=== PATIENT | female | born 1980 | race Caucasian/White ===

== ENCOUNTER 2018-09-21 01:09 | Observation (INO) | payer MEDICAID ==
[~2018-09-21] VITALS: Ht 167.6 cm; Wt 79.4 kg
[2018-09-21 01:23] VITALS: BP 123/83
--- NOTE | 2018-09-21 01:30 | NUR ---
38 YO F BIB SELF PRESENTS TO ED C/O SOB/DYSPNEA X 2 DAYS. SHE ALSO C/O 7/10 CHEST DISCOMFORT DURING DURING DEEP BREATHING. PT IS A POOR HISTORIAN. SHE STATES SHE THINKS SHE HAS ASTHMA BUT HAS NEVER BEEN DIAGNOSED. SHE ALSO REPORTS THAT SHE WAS ADMITTED TO [facility] SOMETIME WITHIN THE PAST MONTH FOR LOW OXYGEN BUT LEFT AMA. PT STATES SHE TAKES AN ALBUTEROL INH AT HOME NEEDED BUT IT HASN'T BEEN WORKING. PT ALSO HAS RX FOR PREDNISONE BUT DOESN'T TAKE IT DUE TO SIDE EFFECTS. --INCREASED WOB NOTED. SP02 84% ON RA. PT PLACED ON NON-REBREATHER MASK AT 10 LPM. SPO2 INCREASED TO 95%. RT CALLED TO BEDSIDE. LUNG SOUNDS DIMINISHED/SHALLOW. MILD WHEEZING HEARD ON INSPIRATION/EXPIRATION. -- PT APPEARS MILDLY ANXIOUS/UNCOMFORTABLE. IS COOPERATIVE, ANSWERS QUESTIONS, BEHAVIOR APPROPRIATE. -- SKIN PINK, WARM DRY. PMH-- COLITIS, HYPOGLYCEMIA RX-- ALBUTEROL INH
--- NOTE | 2018-09-21 01:33 | NUR ---
DR. SORTO BEDSIDE EVALUATING PT
[2018-09-21] MEDS ORDERED: ALBUTEROL SULFATE/IPRATROPIU 3 ML SOL IH ONE ×3 (01:35→05:20)
--- NOTE | 2018-09-21 01:45 | NUR ---
RT AT BEDSIDE. BREATHING TX IN PROGRESS.
[2018-09-21 01:50] LABS: BASOPHILS # (AUTO) 0.1 K/uL (0.00-0.22); BASOPHILS % (AUTO) 0.8 % (0.0-2.0); EOSINOPHILS # (AUTO) 0.6 K/uL (0-0.4); EOSINOPHILS % (AUTO) 6.7 % (0.0-4.0); HEMATOCRIT 43.3 % (36-48); HEMOGLOBIN 14.5 g/dL (12.0-16.0); LYMPHOCYTES # (AUTO) 2.3 K/uL (2.5-16.5); LYMPHOCYTES % (AUTO) 24.6 % (20.5-51.1); MEAN CORPUSCULAR HEMOGLOBIN 31 pg (27-31); MEAN CORPUSCULAR HGB CONC 34 g/dL (33-37); MEAN CORPUSCULAR VOLUME 91.4 fL (80-94); MONOCYTES % (AUTO) 10.5 % (1.7-9.3); NEUTROPHILS # (AUTO) 5.3 K/uL (1.8-7.7); NEUTROPHILS % (AUTO) 57.4 % (42.2-75.2); PLATELET COUNT (AUTO) 444 K/uL (140-450); RED BLOOD CELL COUNT(AUTO) 4.74 MIL/uL (4.20-5.40); RED CELL DISTRIBUTION WIDTH 14.4 % (11.6-13.7); WHITE BLOOD COUNT (AUTO) 9.2 K/uL (4.8-10.8)
[2018-09-21 01:58] LABS: ANION GAP 11.4 (8-16); CREATININE 0.8 mg/dL (0.6-1.3); POTASSIUM 3.4 mmol/L (3.5-5.1)
[2018-09-21 02:04] LABS: ALBUMIN 3.5 g/dL (3.4-5.0); TOTAL BILIRUBIN 0.3 mg/dL (0.0-1.0)
--- NOTE | 2018-09-21 02:16 | NUR ---
EKG PERFORMED BY RN AT BEDSIDE.
[2018-09-21] MEDS ORDERED: DEXAMETHASONE 10 MG/ML VIAL IVP ONE (03:05)
--- NOTE | 2018-09-21 03:50 | NUR ---
PT TAKEN OFF OXYGEN TO EVALUATE SP02 AT RA. WILL CONTINUE TO MONITOR.
--- NOTE | 2018-09-21 04:00 | NUR ---
PT SP02: 90% ON RA. DR. SORTO NOTIFIED. PT WILL BE ADMITTED. PT PLACED BACK ON 4 LPM FIO2 VIA NC.
[2018-09-21] MEDS ORDERED: ALBU2.5V IH (04:30)
--- NOTE | 2018-09-21 04:45 | NUR ---
SP02 DROPED TO 90% ON 4 LPM VIA NC. PT SWITCHED TO NON REBREATHER ON 10 LPM.
--- NOTE | 2018-09-21 05:45 | NUR ---
PT IS REQUESTING FOOD. ARIS PROVIDED. EATING AT THIS TIME.
--- NOTE | 2018-09-21 06:14 | NUR ---
Patient will be admitted to care of DR. LACY. Admited to TELE. Will go to room 111. Belongings list completed. Report to MANUEL PANG.
[2018-09-21] MEDS ORDERED: NACL 0.45% 1,000 ML IV SCH (06:20)
--- NOTE | 2018-09-21 07:26 | NUR ---
RECEIVED PT FROM ER .PT IS AWAKE,ALERT AND ORIENTED.RESP.UNLABORED W/O2.SL PATENT.PLACED ON BED .ORIENTED TO ROOM. CALL SYSTEM EXPLAINED AND IN REACH.MRSA SWAB OBTAINED.HAS NO C/O PAIN AND/OR DISCOMFORT.ENDORSED REPORT TO [facility] JACKSON AM SHIFT.
--- NOTE | 2018-09-21 07:27 | NUR ---
RECEIVED ENDORSEMENT FROM STOPPER GRINDER CHARGE NURSE. PATIENT IS AAOX4, SLEEPING BUT EASILY AROUSABLE. RESPIRATIONS ARE EVEN AND UNLABORED ON 10L NONREBREATHER. LEFT FA IV 22 G INTACT AND SL. PLAN OF CARE WAS REVIEWED WITH PATIENT. PATIENT VERBALIZED UNDERSTANDING. SAFETY MEASURES IN PLACE, CALL LIGHT WITHIN REACH. Addendum: 09/21/18 at 0821 by Nalini Wilkinson RN DENIES PAIN AT THIS TIME.
[2018-09-21 08:00] VITALS: BP 112/71
--- NOTE | 2018-09-21 08:17 | NUR ---
PATIENT HAS BEEN SCREENED AND CATEGORIZED LOW NUTRITION RISK. PATIENT WILL BE SEEN WITHIN 7 DAYS OF ADMISSION. 09/27/[address]
[2018-09-21] MEDS: ALBUTEROL 0.083% 2.5 MG/3 ML NEBU INH PRN ×3 (08:27→20:15)
[2018-09-21] MEDS: AZITHROMYCIN 500 MG in DEXTROSE 5% 250 ML IV SCH (08:50)
[2018-09-21] MEDS: ENOXAPARIN 40 MG/0.4 ML SYR SUBQ SCH (08:51)
--- NOTE | 2018-09-21 09:05 | NUR ---
ADMINISTERED SCHEDULED MEDICATIONS. PATIENT IS SLEEPING, EASILY AROUSABLE. DENIES ANY PAIN OR SOB AT THIS TIME. WILL CONTINUE TO MONITOR.
[2018-09-21 12:00] VITALS: BP 98/72
--- NOTE | 2018-09-21 12:15 | NUR ---
ADMINISTERED SCHEDULED MEDICATIONS. PATIENT IS SLEEPING EASILY AROUSABLE. DENIES ANY PAIN AT THIS TIME. WILL CONTINUE TO MONITOR.
[2018-09-21] MEDS: methylPREDNISolone SS 40 MG/ML VIAL IVP SCH ×3 (12:26→23:50)
[2018-09-21] MEDS ORDERED: ACETAMINOPHEN 325 MG TAB PO PRN (12:35)
--- NOTE | 2018-09-21 13:27 | NUR ---
PATIENT IS SLEEPING, EASILY AROUSABLE. NO OTHER NEEDS AT THIS TIME.
--- NOTE | 2018-09-21 14:17 | NUR ---
PATIENT IS RESTING IN BED, DENIES ANY PAIN. NO OTHER NEEDS AT THIS TIME.
[2018-09-21 16:00] VITALS: BP 129/83
--- NOTE | 2018-09-21 16:15 | NUR ---
PATIENT IS RESTING IN BED. FAMILY IS AT BEDSIDE. DENIES ANY PAIN AT THIS TIME. WILL CONTINUE TO MONITOR.
--- NOTE | 2018-09-21 19:22 | NUR ---
ENDORSED TO WEIGHTER FOR CONTINUITY OF CARE. PATIENT IS STABLE.
--- NOTE | 2018-09-21 19:25 | NUR ---
RECEIVED FROM AM RN IN BED AWAKE AND ALERT. ABLE TO CARRY A CONVERSATION WITH ME WELL. SPEAKS GOOD CROATIAN. NO PAIN COMPLAINT. REMINDED TO USE CALL LIGHT FOR IF IN PAIN AND IF SHE NEEDS HELP. TELEMETRY MONITORING. CARE PLANS FOR THE NIGHT DISCUSSED WITH HER. A/O X 4. ROM X 4 . ORIENTED X 4. WITH NS AT 50 ML/H INFUSING. NO INFILTRATION TO IVF SITE.
[2018-09-21 19:44] VITALS: BP 107/75
[2018-09-21 23:32] VITALS: BP 116/76
--- NOTE | 2018-09-21 23:34 | NUR ---
PT. SLEEPING EARLIER BUT WOKE UP RT HUNGRY. ASKING FOR SNACK. TUNA SANDWICH PROVIDED WITH APPLE JUICE. NO WHEEZING NOTED AT THIS TIME. ABLE TO VERBALIZE NEEDS WELL. A/O X 4. ROM X 4. CLEAR SPEECH. TELEMETRY MONITORING. NSR ON MONITOR.
--- NOTE | 2018-09-22 01:53 | NUR ---
PT. SLEEPING AT THIS TIME. NO RESTLESSNESS NOTED. CALL LIGHT WITH IN REACH. NO SOB.
[2018-09-22] MEDS: ALBUTEROL 0.083% 2.5 MG/3 ML NEBU INH PRN ×3 (03:37→15:25)
[2018-09-22 04:05] VITALS: BP 124/81
--- NOTE | 2018-09-22 04:23 | NUR ---
PT. AWAKE AT THIS TIME RT REQUESTED FOR BREATHING TREATMENT. RESPIRATORY THERAPIST IN HERE AND 02 SAT PER RT JUST FINE. PT. ABLE TO VERBALIZE NEEDS WELL. STATED THAT IT COULD BE HER ALLERGY ACTING UP BECAUSE SHE HAS ITCHY EYES AT PRESENT. REQUESTED FOR WET COLD FACE TOWEL. PROVIDED WITH ONE. "IT FEELS BETTER" NO FURTHER COMPLAINTS DONE.
[2018-09-22 08:00] VITALS: BP 105/54
[2018-09-22 08:08] LABS: HEMATOCRIT 40.5 % (36-48); HEMOGLOBIN 13.6 g/dL (12.0-16.0); MEAN CORPUSCULAR HEMOGLOBIN 31 pg (27-31); MEAN CORPUSCULAR HGB CONC 34 g/dL (33-37); RED CELL DISTRIBUTION WIDTH 13.9 % (11.6-13.7); WHITE BLOOD COUNT (AUTO) 20.3 K/uL (4.8-10.8)
--- NOTE | 2018-09-22 08:29 | NUR ---
[facility] WAS DOWN. PLEASE REFER TO PAPER DOCUMENT.
[2018-09-22 08:37] LABS: ALBUMIN 3.3 g/dL (3.4-5.0); CARBON DIOXIDE 21.8 mmol/L (21-32); CREATININE 0.6 mg/dL (0.6-1.3); POTASSIUM 3.8 mmol/L (3.5-5.1); TOTAL BILIRUBIN 0.2 mg/dL (0.0-1.0)
[2018-09-22 09:05] LABS: PLATELET COUNT (AUTO) 454 K/uL (140-450)
[2018-09-22 09:06] LABS: LYMPHOCYTES % (MANUAL) 4 % (20-46); MONOCYTES % (MANUAL) 3 % (5-12)
[2018-09-22] MEDS: AZITHROMYCIN 500 MG in DEXTROSE 5% 250 ML IV SCH (09:11)
--- NOTE | 2018-09-22 09:17 | NUR ---
ADMINISTERED MEDS PER MD ORDER, PATIENT TOLERATED WELL. PATIENT IS RESTING ON BED AT THIS TIME. PATIENT SAID, " I DIDN'T GET A GOOD SLEEP LAST NIGHT. IT WAS VERY NOISY IN THE [place]." ASSISTED PATIENT TO POSITION COMFORTABLY ON BED. TELE MONITOR IN PLACE. SAFETY MEASURES IN PLACE. INSTRUCTED PATIENT TO USE THE CALL LIGHT FOR ANY ASSISTANCE AND PATIENT WAS AWARE.
[2018-09-22] MEDS: ENOXAPARIN 40 MG/0.4 ML SYR SUBQ SCH (09:56)
--- NOTE | 2018-09-22 11:13 | NUR ---
PATIENT IS RESTING ON BED AT THIS TIME. DENIES PAIN AND SOB. RESPIRATION EVEN AND UNLABORED. NO SIGNS OF DISTRESS NOTED. SAFETY MEASURES IN PLACE. TELE MONITOR ATTACHED. BED IN LOW POSITION AND CALL LIGHT WITHIN REACH.
[2018-09-22 12:00] VITALS: BP 122/69
[2018-09-22] MEDS: methylPREDNISolone SS 40 MG/ML VIAL IVP SCH (12:30)
--- NOTE | 2018-09-22 13:45 | NUR ---
PATIENT IS TALKING ON THE PHONE. DENIES PAIN AND SOB. NO SIGNS OF DISTRESS NOTED. SAFETY MEASURES IN PLACE. TELE MONITOR ATTACHED.
--- NOTE | 2018-09-22 14:30 | NUR ---
DR VALENZUELA IS TALKING TO PATIENT AT BEDSIDE. NO SIGNS OF DISTRESS NOTED. SAFETY MEASURES IN PLACE.
[2018-09-22] MEDS ORDERED: ALBU0.0912 IH (14:36)
[2018-09-22] MEDS ORDERED: PRED20TA5 PO (14:36)
[2018-09-22] MEDS ORDERED: BECL10.62 IH (14:36)
--- NOTE | 2018-09-22 14:40 | NUR ---
PER PATIENT, SHE WILL CALL HER FAMILY OR MOTHER TO FIND OUT WHAT TIME THEY WILL BE ABLE TO PICK HER UP FROM THE HOSPITAL. NO SIGNS OF DISTRESS NOTED. SAFETY MEASURES IN PLACE.
--- NOTE | 2018-09-22 15:10 | NUR ---
PATIENT IS TALKING ON THE PHONE. NO SIGNS OF DISTRESS NOTED.
--- NOTE | 2018-09-22 15:25 | NUR ---
PER PATIENT, NO ONE IS ABLE TO PICK HER UP FROM HER FAMILY. OFFERED BUS TICKET BUT PATIENT PREFERRED TO TAKE THE TAXI AND SHE SAID, " I WILL TAKE THE TAXI AND I WILL PAY FOR IT."
[2018-09-22 16:00] VITALS: BP 118/67
--- NOTE | 2018-09-22 16:15 | NUR ---
PATIENT HAS CHANGED INTO HER OWN CLOTHES AND WAITING FOR THE TAXI TO ARRIVE. DENIES PAIN AND SOB. NO SIGNS OF DISTRESS NOTED. SAFETY MEASURES IN PLACE.
--- NOTE | 2018-09-22 16:25 | NUR ---
DISCHARGE INSTRUCTION PROVIDED TO PATIENT AT BEDSIDE. INSTRUCTED PATIENT TO FOLLOW UP WITH MD AFTER D/C FROM HOSPITAL, EDUCATED PATIENT ON DISEASE MANAGEMENT, MEDICATION REGIMEN, MEDICATION SIDE EFFECTS, DIET REGIMEN. PATIENT VERBALIZED UNDERSTANDING. ANSWERED ALL PATIENT'S QUESTIONS. D/C IV AND IV CANNULA INTACT, NO BLEEDING AT IV INSERT SITE, PATIENT TOLERATED WELL. REMOVED ALL ARMS BANDS. PATIENT CHECKED THE CABINETS AND TOOK ALL HER BELONGINGS. ESCORTED PATIENT TO THE LOBBY AND PATIENT IS DISCHARGE AT THIS TIME IN STABLE CONDITION.
== END 2018-09-22 16:25 | disposition home or self-care (01) ==
LOC: MED 01:09 → MTU 05:38 → INTOOBSV 05:38
PROVIDERS: ADMIT Internal Medicine; ATTEND Internal Medicine
DX: J96.01 Acute respiratory failure with hypoxia (principal); J45.901 Unspecified asthma with (acute) exacerbation; E87.6 Hypokalemia; K52.9 Noninfective gastroenteritis and colitis, unspecified; E16.2 Hypoglycemia, unspecified
CPT/HCPCS: 36415; 71045; 80053; 83735; 84484; 85025; 87081; 93005; 94640; 94760; 96361; 96365; 96366; 96372; 96375; 96376; 99285; G0378; J0456; J1100; J1650; J2920; J7030; J7060; J7613; J7620; Q0092; 96374

== ENCOUNTER 2018-11-14 04:43 | Emergency (ER) | payer MEDICAID ==
[~2018-11-14] VITALS: Ht 167.6 cm; Wt 67.1 kg
[~2018-11-14 04:43] MED LIST: ALBU0.0912 IH; ALBU2.5V IH; BECL10.62 IH; PRED20TA5 PO
[2018-11-14 04:46] VITALS: BP 134/96
--- NOTE | 2018-11-14 04:50 | NUR ---
PT TAKEN TO BED 6
--- NOTE | 2018-11-14 04:52 | NUR ---
Dr. Gruber examining patient.
--- NOTE | 2018-11-14 04:53 | NUR ---
38/F PRESENTS TO ER AMBULATORY. AWAKE AND ALERT. C/O SUDDEN SOB. PT SAYS SHE HAS HAD SOB AND COUGH FOR A MONTH BUT WORSENDED THIS MORNING. DID NOT TAKE ANY MEDICATIONS TO ALLEVIATE SYMPTOMS. STATES SHE HAS HAD ASTHMA A CHILD BUT DOES NOT TAKE INHALER MEDICATION. STATES NO OTHER HEALTH MEDICAL HX. NKA. LABORED TACHYPNEA WITH NON PRODUCTIVE COUGH. EXPIRATORY WHEEZES HEARD. O2 SAT 95%. WILL CONTINUE TO MONITOR.
[2018-11-14] MEDS ORDERED: NACL 0.9% 500 ML IV SCH (04:54)
[2018-11-14] MEDS ORDERED: MAG SULF 2000 MG/WATER PREMIX 50 ML IV ONE (04:55)
[2018-11-14] MEDS ORDERED: ALBUTEROL SULFATE/IPRATROPIU 3 ML SOL IH ONE ×2 (04:55→05:50)
--- NOTE | 2018-11-14 05:00 | NUR ---
Respiratory Therapist at bedside for respiratory intervention.
--- NOTE | 2018-11-14 05:04 | NUR ---
Nicky graves in [facility] - 11/14/18 at [address] Gruber examining patient.
--- NOTE | 2018-11-14 05:16 | NUR ---
EKG PERFORMED AT BEDSIDE
--- NOTE | 2018-11-14 05:30 | NUR ---
X-Ray at bedside.
[2018-11-14] MEDS ORDERED: methylPREDNISolone SS 125 MG/2 ML VIAL IVP ONE (05:45)
--- NOTE | 2018-11-14 05:53 | NUR ---
Respiratory Therapist at bedside for respiratory intervention.
[2018-11-14 05:55] LABS: BASOPHILS % (AUTO) 0.2 % (0.0-2.0); EOSINOPHILS # (AUTO) 1.1 K/uL (0-0.4); EOSINOPHILS % (AUTO) 10.3 % (0.0-4.0); HEMATOCRIT 44.2 % (36-48); HEMOGLOBIN 14.4 g/dL (12.0-16.0); LYMPHOCYTES # (AUTO) 2.3 K/uL (2.5-16.5); LYMPHOCYTES % (AUTO) 20.3 % (20.5-51.1); MEAN CORPUSCULAR HEMOGLOBIN 31 pg (27-31); MEAN CORPUSCULAR HGB CONC 33 g/dL (33-37); MEAN CORPUSCULAR VOLUME 93.7 fL (80-94); MONOCYTES # (AUTO) 0.9 K/uL (0.8-1.0); MONOCYTES % (AUTO) 8.5 % (1.7-9.3); NEUTROPHILS # (AUTO) 6.7 K/uL (1.8-7.7); NEUTROPHILS % (AUTO) 60.7 % (42.2-75.2); PLATELET COUNT (AUTO) 452 K/uL (140-450); RED BLOOD CELL COUNT(AUTO) 4.71 MIL/uL (4.20-5.40); RED CELL DISTRIBUTION WIDTH 14.8 % (11.6-13.7); WHITE BLOOD COUNT (AUTO) 11.1 K/uL (4.8-10.8)
[2018-11-14 06:07] LABS: ANION GAP 14.3 (8-16); CARBON DIOXIDE 25.9 mmol/L (21-32); CREATININE 0.9 mg/dL (0.6-1.3); POTASSIUM 3.2 mmol/L (3.5-5.1)
[2018-11-14 06:13] LABS: ALBUMIN 4.1 g/dL (3.4-5.0); TOTAL BILIRUBIN 0.2 mg/dL (0.0-1.0)
[2018-11-14 06:21] LABS: PROTHROMBIN TIME 9.9 secs (10.8-13.4)
[2018-11-14] MEDS ORDERED: POTASSIUM CHLORIDE 10 MEQ TABER PO ONE (06:25)
--- NOTE | 2018-11-14 07:12 | NUR ---
REPORT RECIEVED FROM SALONI JACKSON. PT AMB TO RESTROOM WITH STEADY GAIT AT THIS TIME. AA0X4. TO BE TRANSFERED TO ANOTHER FACILITY, WAITING FOR BED ASSIGNMENT. PER SALONI, REPORT HAS ALREADY BEEN GIVEN TO JODI MEHTA. Addendum: 11/14/18 at 0716 by [email or web address] REPORT HAS BEEN GIVEN TO INSURANCE, NOT NURSE AT [facility]
--- NOTE | 2018-11-14 07:12 | NUR ---
GAVE BEDSIDE REPORT TO NAVJOT JACKSON. PT IN STABLE CONDITION.
--- NOTE | 2018-11-14 07:13 | NUR ---
AMBULATING TO BATHROOM FOR UA. STEADY GAIT.
--- NOTE | 2018-11-14 07:20 | NUR ---
URINE COLLECTED AND WALKED DIRECTLY TO LAB
--- NOTE | 2018-11-14 07:27 | NUR ---
PT REQUESTING TO EAT, REGULAR DIET ORDERED
[2018-11-14 07:33] LABS: BILIRUBIN,URINE NEGATIVE (NEGATIVE); BLOOD, URINE 1+ (NEGATIVE); COLOR,URINE YELLOW (YELLOW); LEUKOCYTE ESTERASE ,URINE 1+ (NEGATIVE); NITRITE, URINE NEGATIVE (NEGATIVE); UGLUCOSE NEGATIVE (NEGATIVE)
[2018-11-14 07:37] LABS: APPEARANCE,URINE SLIGHTLY HAZY (CLEAR)
[2018-11-14 07:38] LABS: WBC,URINE 0-5 /HPF (0-5)
--- NOTE | 2018-11-14 07:44 | NUR ---
breakfest placed bedside. pt sleeping at this time. rr even and unlabored.
--- NOTE | 2018-11-14 08:30 | NUR ---
PATIENT SIGNED CONSENT FOR TRANSFER
--- NOTE | 2018-11-14 09:38 | NUR ---
REPORT GIVEN TO THOMPSON JACKSON AT [facility]. PT TO GO TO ROOM 2143. TRANSPORT TEAM TO ARRIVE AT APPROX 1000.
--- NOTE | 2018-11-14 09:40 | NUR ---
PT CONTINUES TO HAVE A PRODUCTIVE COUGH AT BEDSIDE. BILATERAL WHEEZES PRESENT IN ALL 4 QUADRANTS.
[2018-11-14] MEDS ORDERED: IPRATROPIUM 0.02% 0.5 MG/2.5 ML NEBU INH ONE (09:45)
[2018-11-14] MEDS ORDERED: ALBUTEROL 0.083% 2.5 MG/3 ML NEBU INH ONE (09:45)
--- NOTE | 2018-11-14 09:53 | NUR ---
ADMITTING DX: SOB HX: CHILDHOOD ASTHMA LOC AWAKE AND ALERT VERBALLY RESPONSIVE TO RN UROLOGY VERBAL COMMANDS SEMI- HFW POSITION EDUCATION PROVIDED TO PATIENT WITH ACKNOWLEDGEMENT ON HHN THERAPY AND RESPIRATORY DRUGS FOREMENTIONED GIVEN ORDERED ENCOURAGED PATIENT FOR INTERMITTENT DEEP BREATHING DURING THERAPY POST [facility] THERAPY [facility] AT BEDSIDE TO TRANSFER PATIENT TO [facility] FOR FURTHER TREATMENT PLACED ON SUPPLEMENTAL OXYGEN AT 3 LPM VIA NC FOR TRANSPORT BY [facility]
--- NOTE | 2018-11-14 09:55 | NUR ---
LEONOR RT AT BEDSIDE
--- NOTE | 2018-11-14 09:59 | NUR ---
Dr. Kimball re-evaluating patient at bedside.
--- NOTE | 2018-11-14 09:59 | NUR ---
TRANSPORT TEAM PRESENT, WAITING FOR PTS BREATHING TREATMENT TO FINISH
[2018-11-14 10:03] VITALS: BP 131/92
--- NOTE | 2018-11-14 10:03 | NUR ---
Patient to be transferred to [facility]. Is being transferred due to COPD EXACERBATION. Receiving facility has accepting physician and available space. ER physician has signed transfer form. Patient or responsible democrat has agreed to transfer and signed form. Patient belongings inventoried and will be sent with patient. Copy of nursing notes, lab reports, EKG, Physicians Orders and X-rays to be sent with patient AND TRANSPORT TEAM. Report called to THOMPSON JACKSON at receiving facility.
--- NOTE | 2018-11-14 10:15 | NUR ---
PT LEAVING ON STRETCHER WITH TRANSPORT TEAM AT THIS TIME
== END 2018-11-14 10:15 | disposition short-term general hospital (02) ==
LOC: MED 04:43
DX: J44.1 Chronic obstructive pulmonary disease with (acute) exacerbation (principal); R11.2 Nausea with vomiting, unspecified; R51 Headache; Z79.899 Other long term (current) drug therapy
CPT/HCPCS: 36415; 71045; 80053; 81001; 83605; 85025; 85610; 85730; 87040; 93005; 94640; 96365; 96375; 99285; J2930; J3475; J7030; J7613; J7620; J7644

== ENCOUNTER 2019-05-20 22:36 | Emergency (ER) | payer MEDICAID ==
[~2019-05-20] VITALS: Ht 167.6 cm; Wt 70.8 kg
[~2019-05-20 22:36] MED LIST changes: -ALBU2.5V IH; -BECL10.62 IH; -PRED20TA5 PO
[2019-05-20 22:40] VITALS: BP 123/78
--- NOTE | 2019-05-20 22:40 | NUR ---
TO BED # 09 AMBULATORY
--- NOTE | 2019-05-20 22:45 | NUR ---
PT 39 Y/O FEMALE BIB SELF FOR C/O SOB. PT AAO X4. RESPIRATIONS EVEN AND UNALBORED. PT NOTED WITH COUGH, NON-PRODUCTIVE. LUNG SOUNDS NOTED WITH WHEEZING A/P BILAT UPON INSPIRATION AND EXPIRATION. PT ON 2L/MIN O2SAT @ 99%. PT SITTING UPRIGHT IN BED AND TALKING TO SISTER. PT HAS C/O NAUSEA. LAST EPIDOSE OF VOMITING X 2 DAYS AGO. PT HAS C/O DIARRHEA TODAY X 1 DARK BROWN IN COLOR. PT ABD SOFT ROUND NON-TENDER BS PRESENT X 4. BED LOCKED AND IN LOWEST POSITION. PT ON MONTIOR. MEDHX: COPD, ASTHMA ALLERGIES: NONE.
--- NOTE | 2019-05-20 22:59 | NUR ---
X-RAY AT BEDSIDE.
[2019-05-20] MEDS ORDERED: ALBUTEROL SULFATE/IPRATROPIU 3 ML SOL IH ONE (23:00)
[2019-05-20] MEDS ORDERED: methylPREDNISolone SS 125 MG/2 ML VIAL IM ONE (23:00)
--- NOTE | 2019-05-20 23:08 | NUR ---
AUTOMOTIVE LOT ATTENDANT AT BEDSIDE. BREATHING TX IN PROGRESS.
[2019-05-20] MEDS ORDERED: LEVOFLOXACIN 750 MG TAB PO ONE (23:55)
[2019-05-20] MEDS ORDERED: ALBUTEROL 0.083% 2.5 MG/3 ML NEBU INH ONE (23:55)
--- NOTE | 2019-05-20 23:55 | NUR ---
RT AT BED SIDE. BREATHING TX GIVEN. PT O2SAT @ 100%.
--- NOTE | 2019-05-21 00:04 | NUR ---
LAB AT BEDSIDE.
[2019-05-21] MEDS ORDERED: ONDANSETRON 4 MG/2 ML VIAL IVP ONE (00:05)
[2019-05-21] MEDS ORDERED: NACL 0.9% 1,000 ML IV ONE (00:05)
[2019-05-21 00:17] LABS: BASOPHILS # (AUTO) 0.1 K/uL (0.00-0.22); BASOPHILS % (AUTO) 0.9 % (0.0-2.0); HEMATOCRIT 42.7 % (36-48); LYMPHOCYTES # (AUTO) 2.5 K/uL (2.5-16.5); LYMPHOCYTES % (AUTO) 26.3 % (20.5-51.1); MEAN CORPUSCULAR HEMOGLOBIN 30 pg (27-31); MEAN CORPUSCULAR HGB CONC 33 g/dL (33-37); MEAN CORPUSCULAR VOLUME 92.4 fL (80-94); MONOCYTES % (AUTO) 10.2 % (1.7-9.3); NEUTROPHILS % (AUTO) 52.6 % (42.2-75.2); PLATELET COUNT (AUTO) 435 K/uL (140-450); RED BLOOD CELL COUNT(AUTO) 4.62 MIL/uL (4.20-5.40); RED CELL DISTRIBUTION WIDTH 14.3 % (11.6-13.7); WHITE BLOOD COUNT (AUTO) 9.5 K/uL (4.8-10.8)
[2019-05-21 00:26] LABS: ANION GAP 11.2 (8-16); CARBON DIOXIDE 29.2 mmol/L (21-32); CREATININE 0.8 mg/dL (0.6-1.3); POTASSIUM 3.4 mmol/L (3.5-5.1)
--- NOTE | 2019-05-21 00:31 | NUR ---
PT HAD C/O NAUSEA. UNABLE TO GIVE LEVAQUIN PO AT THIS TIME D/T PT REFUSED. NOTIFIED. NEW ORDERS GIVEN FOR IV PLACEMENT. NS 0.9% BOLUS RUNNING CONTINOUSLY. IV SITE IS PATENT. NO SWELLING, PAIN, OR REDNESS NOTED. ZOFRAN 4MG IVP GIVEN. WILL CONTINUE TO MONITOR.
[2019-05-21 00:32] LABS: ALBUMIN 3.4 g/dL (3.4-5.0); TOTAL BILIRUBIN 0.2 mg/dL (0.0-1.0)
--- NOTE | 2019-05-21 00:43 | NUR ---
XRAY AT BEDSIDE.
--- NOTE | 2019-05-21 00:43 | NUR ---
RT AT BEDSIDE.
--- NOTE | 2019-05-21 01:24 | NUR ---
Note mariione in EDM - 05/21/19 at 0207 by [facility] Patient discharged with v/s stable. Written and verbal after care instructions given and explained. Patient alert, oriented and verbalized understanding of instructions. Ambulatory with steady gait. All questions addressed prior to discharge. ID band removed. Patient advised to follow up with PMD. Rx of Promethazine Hcl given. Patient educated on indication of medication including possible reaction and side effects. Opportunity to ask questions provided and answered.
[2019-05-21] MEDS ORDERED: METOCLOPRAMIDE 10 MG/2 ML INJ VIAL IVP ONE (01:30)
--- NOTE | 2019-05-21 01:30 | NUR ---
PT TAKEN TO CT VIA RROXANE.
[2019-05-21] MEDS ORDERED: PROMETH/CODEINE 6.25-10MG/5ML 5 ML UDC PO ONE (01:35)
--- NOTE | 2019-05-21 01:58 | NUR ---
PT HAD C/O CONTINOUS NAUSEA. DR. COSBY NOTIFIED AND GAVE ORDER FOR REAGLAN 10MG IVP. MEDICATION GIVEN. WILL REEVALUATE. PT ON NC 2L/MIN. O2SAT @ 100%. RESPIRATIONS ARE EVEN AND UNLABORED SKIN IS WARM AND DRY TO TOUCH. BED LOCKED AND IN LOWEST POSITION. PT ON MONITOR.
--- NOTE | 2019-05-21 02:10 | NUR ---
PT SATES RELIEF FROM NAUSEA. LEVAQUIN GIVEN PO ORDERED BY DR. COSBY.
--- NOTE | 2019-05-21 02:18 | NUR ---
PT RESTING IN BED EYES CLOSED. RESPIRATIONS ARE EVEN AND UNLABORED. SKIN IS WARM AND DRY TO TOUCH. PT ON O2 2L/MIN NC. O2SAT @ 100%. PT ON MONITOR. BED LOCKED AND IN LOWEST POSITION.
[2019-05-21 03:04] VITALS: BP 114/68
--- NOTE | 2019-05-21 03:04 | NUR ---
Patient discharged with v/s stable. Written and verbal after care instructions given and explained. Patient alert, oriented and verbalized understanding of instructions. Ambulatory with steady gait. All questions addressed prior to discharge. ID band removed. Patient advised to follow up with PMD. Rx of Promethazine, Prednisone, and Albuterol given. Patient educated on indication of medication including possible reaction and side effects. Opportunity to ask questions provided and answered.
== END 2019-05-21 03:04 | disposition home or self-care (01) ==
LOC: MED 22:36
DX: J44.1 Chronic obstructive pulmonary disease with (acute) exacerbation (principal)
CPT/HCPCS: 36415; 71045; 71250; 80053; 85025; 87804; 96372; 96374; 96375; 99284; J2405; J2765; J2930; J7030; J7613; J7620

== ENCOUNTER 2019-07-09 20:24 | Emergency (ER) | payer MEDICAID ==
[~2019-07-09] VITALS: Ht 167.6 cm; Wt 77.1 kg
[2019-07-09 20:45] VITALS: BP 146/84
--- NOTE | 2019-07-09 20:49 | NUR ---
PT TAKEN TO BED 3
[2019-07-09 20:55] VITALS: BP 146/84
--- NOTE | 2019-07-09 20:55 | NUR ---
PT ASSESSMENT COMPLETE. PT PLACED IN GOWN. WILL CONTINUE TO MONITOR.
--- NOTE | 2019-07-09 21:53 | NUR ---
Patient discharged with v/s stable. Written and verbal after care instructions given and explained. Patient alert, oriented and verbalized understanding of instructions. Ambulatory with steady gait. All questions addressed prior to discharge. ID band removed. Patient advised to follow up with PMD. Rx of ACYCLOVIR, BACTRIM, AND MOTRIN given. Patient educated on indication of medication including possible reaction and side effects. Opportunity to ask questions provided and answered.
== END 2019-07-09 21:53 | disposition home or self-care (01) ==
LOC: MED 20:24
DX: N76.2 Acute vulvitis (principal); J44.9 Chronic obstructive pulmonary disease, unspecified; F17.210 Nicotine dependence, cigarettes, uncomplicated; Z79.899 Other long term (current) drug therapy
CPT/HCPCS: 81002; 81025; 99283

== ENCOUNTER 2019-08-13 08:05 | Emergency (ER) | payer MEDICAID ==
[~2019-08-13] VITALS: Ht 167.6 cm; Wt 77.1 kg
[2019-08-13 08:13] VITALS: BP 131/92
[2019-08-13] MEDS ORDERED: predniSONE 20 MG TAB PO ONE (08:15)
[2019-08-13] MEDS ORDERED: ALBUTEROL SULFATE/IPRATROPIU 3 ML SOL IH ONE (08:15)
[2019-08-13] MEDS ORDERED: ALBUTEROL 0.083% 2.5 MG/3 ML NEBU INH ONE (08:15)
--- NOTE | 2019-08-13 08:17 | NUR ---
pt amb to bed 2
--- NOTE | 2019-08-13 08:23 | NUR ---
RT AT BEDSIDE
--- NOTE | 2019-08-13 08:24 | NUR ---
PRENISONE PO ADMINISTERED
--- NOTE | 2019-08-13 08:24 | NUR ---
OCCASIONAL WHEEZING IN LUNG RAI
--- NOTE | 2019-08-13 08:24 | NUR ---
C/O PRODUCTIVE COUGH AND SOB X 3 DAYS. PT REPORTS SHE RAN OUT OF HER ALBUTEROL MEDICATION. LUNGS DIMINISHED BILTERALLY. PT CONTINUOUSLY COUGHING DURING ASSESSMENT. PMH- ASTHMA HR 113. RR 22. 94% RA. CP 7/10 FROM COUGHING. PT ALERT AND AWAKE, AMBULATORY.
--- NOTE | 2019-08-13 08:46 | NUR ---
NADR, LUNGS CLEAR, PT NO LONGER COUGHING CONTINUOUSLY, PAIN 4/10
[2019-08-13 08:47] VITALS: BP 128/86
--- NOTE | 2019-08-13 08:47 | NUR ---
Patient discharged with v/s stable. Written and verbal after care instructions given and explained. Patient alert, oriented and verbalized understanding of instructions. Ambulatory with steady gait. All questions addressed prior to discharge. ID band removed. Patient advised to follow up with PMD. Rx of ALBUTEROL, PREDNISONE, AND ACUCLOVIR given. Patient educated on indication of medication including possible reaction and side effects. Opportunity to ask questions provided and answered.
== END 2019-08-13 08:47 | disposition home or self-care (01) ==
LOC: MED 08:05
DX: J45.909 Unspecified asthma, uncomplicated (principal); J44.9 Chronic obstructive pulmonary disease, unspecified; Z79.899 Other long term (current) drug therapy
CPT/HCPCS: 94640; 99283; J7512; J7613

== ENCOUNTER 2019-09-12 14:32 | Emergency (ER) | payer MEDICAID ==
[~2019-09-12] VITALS: Ht 167.6 cm; Wt 79.4 kg
[2019-09-12 14:35] VITALS: BP 137/100
[2019-09-12] MEDS ORDERED: ALBUTEROL SULFATE/IPRATROPIU 3 ML SOL IH ONE ×2 (14:40→15:10)
[2019-09-12] MEDS ORDERED: predniSONE 20 MG TAB PO ONE (14:40)
[2019-09-12] MEDS ORDERED: ALBUTEROL 0.083% 2.5 MG/3 ML NEBU INH ONE ×2 (14:40→15:10)
--- NOTE | 2019-09-12 14:47 | NUR ---
39 YO FEMALE CO SOB X2D. PT HAS INSPIRATORY WHEEZES THROUGHOUT. CHEST RISE SYMMETRICAL AND NORMAL EFFORT OBSERVED. PT HAS HX OF ASTHMA AND COPD. PT IS ABLE TO SWALLOW WATER WITH NO DROOLING.
--- NOTE | 2019-09-12 15:13 | NUR ---
Breathing treatment administered by respiratory therapist at bedside.
[2019-09-12 15:54] VITALS: BP 132/85
--- NOTE | 2019-09-12 15:55 | NUR ---
Patient discharged with v/s stable. Written and verbal after care instructions given and explained. Patient alert, oriented and verbalized understanding of instructions. Ambulatory with steady gait. All questions addressed prior to discharge. ID band removed. Patient advised to follow up with PMD. Rx of ALBUTEROL AND PREDNISONE given. Patient educated on indication of medication including possible reaction and side effects. Opportunity to ask questions provided and answered.
== END 2019-09-12 15:55 | disposition home or self-care (01) ==
LOC: MED 14:32
DX: J45.901 Unspecified asthma with (acute) exacerbation (principal); J44.9 Chronic obstructive pulmonary disease, unspecified; Z79.51 Long term (current) use of inhaled steroids
CPT/HCPCS: 94640; 99283; J7512

== ENCOUNTER 2019-09-18 23:17 | Emergency (ER) | payer MEDICAID ==
[~2019-09-18] VITALS: Ht 167.6 cm; Wt 78.1 kg
[2019-09-18 23:21] VITALS: BP 127/87
--- NOTE | 2019-09-18 23:48 | NUR ---
39 YO F BIB SELF FOR C/C OF 8/10 MACEDO, SOB, AND COUGH X10 DAYS. PT DENIES FEVER AND TRAVEL. PT STATES SHE HAS BEEN EXPERIENCING DIZZINESS, LIGHTHEADEDNESS, AND FATIGUE. PT DENIES TAKING ANY OTC MEDICATIONS FOR PAIN. PT STATES SHE WAS SEEN HER ON 09/11 FOR THE SAME S/S AND WAS GIVEN A NEBULIZER BUT NO INH MEDICATIONS. S1S2 HEARD. LUNG SOUNDS CLEAR THROUGHOUT. PT COUGHS ON DEEP INHALATION DURING LUNG AUSCULTATION. DENIES SMOKING OR DRUG USE. BOWEL SOUNDS NORMOACTIVE THROUGHOUT. PT STATES SHE HAS HAD NAUSEA WITH NO VOMITING AND DIARRHEA X3 DAYS. INCREASED APPETITE/HUNGER X 10 DAYS. PT PLACED ON 2L NC PER ERMD VERBAL ORDER. BED LOCKED AND IN LOWEST POSITION. NKA MED HX: ASTHMA, COPD, HYPOGLYCEMIA RX: ALBUTEROL, PREDNISONE
[2019-09-18] MEDS ORDERED: ALBUTEROL SULFATE/IPRATROPIU 3 ML SOL IH ONE (23:50)
--- NOTE | 2019-09-18 23:54 | NUR ---
RT AT BEDSIDE
--- NOTE | 2019-09-19 00:07 | NUR ---
RAD AT BEDSIDE
--- NOTE | 2019-09-19 00:17 | NUR ---
PT WAS GIVEN Tx VIA MASK AND TOLERATED WELL PT HAD SOME EXP WHEEZING AND AERATION W/ SLIGHT WHEEZE STILL PRESENT PT STATED SHE IS OK AND SHOWS NO DISTRESS PT WAS REPLACED BACK ON 2 LNC UPON MY DEPARTURE
--- NOTE | 2019-09-19 00:41 | NUR ---
Patient discharged with v/s stable. Written and verbal after care instructions given and explained. Patient alert, oriented and verbalized understanding of instructions. Ambulatory with steady gait. All questions addressed prior to discharge. ID band removed. Patient advised to follow up with PMD. Rx of ALBUTEROL SULFATE, ALBUTEROL given. Patient educated on indication of medication including possible reaction and side effects. Opportunity to ask questions provided and answered.
[2019-09-19 00:42] VITALS: BP 120/85
== END 2019-09-19 00:41 | disposition home or self-care (01) ==
LOC: MED 23:17
DX: J45.901 Unspecified asthma with (acute) exacerbation (principal); J44.9 Chronic obstructive pulmonary disease, unspecified; Z79.899 Other long term (current) drug therapy
CPT/HCPCS: 71045; 94640; 99283; Q0092

== ENCOUNTER 2020-01-25 07:34 | Emergency (ER) | payer MEDICAID ==
[~2020-01-25] VITALS: Ht 167.6 cm; Wt 77.1 kg
[2020-01-25 07:44] VITALS: BP 138/69
[2020-01-25] MEDS ORDERED: ALBUTEROL HFA MDI 90 MCG/ACTUATION 8 GM INH ONE (08:10)
[2020-01-25] MEDS ORDERED: IBUPROFEN 600 MG TAB PO ONE (08:15)
[2020-01-25] MEDS ORDERED: predniSONE 20 MG TAB PO ONE (08:15)
[2020-01-25] MEDS ORDERED: guaiFENesin DM 200/20 MG-10 ML 10 ML UDC PO ONE (08:15)
[2020-01-25] MEDS ORDERED: predniSONE 20 MG TAB ONE (08:35)
[2020-01-25] MEDS ORDERED: IBUPROFEN 600 MG TAB ONE (08:36)
[2020-01-25] MEDS ORDERED: guaiFENesin DM 200/20 MG-10 ML 10 ML UDC PO STA (08:46)
[2020-01-25] MEDS ORDERED: ALUMINUM HYD/MAG/SIMETHICONE 30 ML UDC PO ONE (09:25)
[2020-01-25 10:10] VITALS: BP 138/88
== END 2020-01-25 10:10 | disposition home or self-care (01) ==
LOC: MED 07:34
DX: J45.901 Unspecified asthma with (acute) exacerbation (principal); J44.0 Chronic obstructive pulmonary disease with (acute) lower respiratory infection; Z20.828 Contact with and (suspected) exposure to other viral communicable diseases; Z79.899 Other long term (current) drug therapy
CPT/HCPCS: 71045; 93005; 94664; 99285; J7512; Q0092; U0003

== ENCOUNTER 2020-05-03 13:21 | Emergency (ER) | payer MEDICAID, SELFPAY ==
[~2020-05-03] VITALS: Ht 170.2 cm; Wt 74.8 kg
[2020-05-03 14:34] VITALS: BP 131/76
--- NOTE | 2020-05-03 14:35 | NUR ---
triaged and waiting in tent.
--- NOTE | 2020-05-03 17:08 | NUR ---
Patient discharged with v/s stable. Written and verbal after care instructions given and explained. Patient alert, oriented and verbalized understanding of instructions. Ambulatory with steady gait. All questions addressed prior to discharge. ID band removed. Patient advised to follow up with PMD. Rx of prednisone, and albuterol given. Patient educated on indication of medication including possible reaction and side effects. Opportunity to ask questions provided and answered.
== END 2020-05-03 17:08 | disposition home or self-care (01) ==
LOC: MED 13:21
DX: R05 Cough (principal); Z20.828 Contact with and (suspected) exposure to other viral communicable diseases; R06.02 Shortness of breath; J44.9 Chronic obstructive pulmonary disease, unspecified; Z76.0 Encounter for issue of repeat prescription; Z79.899 Other long term (current) drug therapy
CPT/HCPCS: 71045; 93005; 99285; U0003